=== PATIENT | female | born 1995 | race American Indian/Alaskan Native ===

== ENCOUNTER 2021-07-13 13:05 | Emergency (ER) | payer MEDICAID ==
--- NOTE | 2021-07-13 13:54 | Emergency Department Report ---
ED Female HPI - General Chief complaint: Urogenital-Female Stated complaint: FLU/COVID SYMPTOMS Time Seen by Provider: 07/13/21 13:50 Source: patient Mode of arrival: Ambulatory Limitations: No Limitations - History of Present Illness Initial comments: 26-year-old female who denies any significant past medical history presents to the ER today with complaints of abnormal vaginal bleeding. Patient states that she started vaginal spotting about 4 days ago. She states that she had no bleeding on Friday, then Friday the bleeding started again but heavier than normal. She states on average she has had to change 2-3 pads per day, but the pads were not soaked with blood. She states that the bleeding is mainly when she gets up to use the bathroom. She states that her last menstrual cycle was the week before . She is now currently on any control. She reports associated chills and headaches, and she also vomited twice since yesterday but she denies any other symptoms. MD Complaint: vaginal bleeding -: days(s) (2) - Related Data Previous Rx's Medication Instructions Recorded Last Taken Type Ketorolac [Toradol] 10 mg PO Q6H PRN #20 07/13/21 Unknown Rx Ondansetron [Zofran Odt] 4 mg PO Q8HR #15 tab.rapdis 07/13/21 Unknown Rx cephALEXin [Keflex] 500 mg PO Q8HR #21 cap 07/13/21 Unknown Rx Allergies Allergy/AdvReac Type Severity Reaction Status Date / Time No Known Allergies Allergy Unverified 07/13/21 13:43 ED Review of Systems ROS: Stated complaint: FLU/COVID SYMPTOMS Other details as noted in HPI Comment: All other systems reviewed and negative Eyes: denies: eye pain, eye discharge, vision change ENT: denies: ear pain, throat pain Respiratory: denies: cough, shortness of breath, wheezing Endocrine: no symptoms reported Gastrointestinal: nausea, vomiting. denies: abdominal pain, diarrhea, constipation, hematemesis, melena, hematochezia Genitourinary: abnormal menses. denies: urgency, dysuria, frequency, hematuria, discharge Musculoskeletal: denies: back pain, joint swelling, arthralgia Skin: denies: rash, lesions, change in color, change in hair/nails, pruritus Neurological: denies: headache, weakness, numbness, paresthesias, confusion, abnormal gait, vertigo ED Past Medical Hx - Past Medical History Previous Medical History?: No - Surgical History Past Surgical History?: No - Medications Home Medications: Home Medications Medication Instructions Recorded Confirmed Last Taken Type Ketorolac [Toradol] 10 mg PO Q6H PRN #20 07/13/21 Unknown Rx Ondansetron [Zofran Odt] 4 mg PO Q8HR #15 tab.rapdis 07/13/21 Unknown Rx cephALEXin [Keflex] 500 mg PO Q8HR #21 cap 07/13/21 Unknown Rx ED Physical Exam - General Limitations: No Limitations, Language Barrier General appearance: alert, in no apparent distress - Head Head exam: Present: atraumatic, normocephalic, normal inspection - Eye Eye exam: Present: normal appearance, PERRL, EOMI Pupils: Present: normal accommodation - Neck Neck exam: Present: normal inspection, full ROM - Respiratory Respiratory exam: Present: normal lung sounds bilaterally. Absent: respiratory distress, wheezes, rales, rhonchi, stridor - Cardiovascular Cardiovascular Exam: Present: regular rate, normal rhythm, normal heart sounds - Neurological Exam Neurological exam: Present: alert, oriented X3 - Psychiatric Psychiatric exam: Present: normal affect, normal mood - Skin Skin exam: Present: intact ED Course Vital Signs 07/13/21 07/13/21 13:42 16:26 Temperature 98.7 F 98.2 F Pulse Rate 125 H 90 Respiratory 18 16 Rate Blood Pressure 107/77 Blood Pressure 112/62 [Right] O2 Sat by Pulse 98 99 Oximetry ED Medical Decision Making - Lab Data Result diagrams: 07/13/21 15:37 - Medical Decision Making All labs reviewed --CBC and CMP unremarkable. hCG is negative. Urinalysis is concerning for UTI and reflex urine culture is ordered by lab and pending. Patient currently resting comfortably in recliner. She is not toxic or in any acute distress. She is not ill-appearing. She is neurologically intact with a normal gait. She has no complaints of abdominal pain or pelvic pain or back pain. She has a soft nontender abdomen on exam. She appears well-hydrated. Repeat vital signs shows improvement of her heart rate, remaining vital signs are stable. Discussed lab results with patient. She will be treated with antibiotic for UTI. She will need to follow-up with her [facility] for further evaluation if her abnormal bleeding continues. At this time there is no ind ication for emergent consult, or for the emergent testing or treatment. Patient expressed understanding for instructions and agree with plan. Patient stable at time of discharge. Critical care attestation.: If time is entered above; I have spent that time in minutes in the direct care of this critically ill patient, excluding procedure time. ED Disposition Clinical Impression: Abnormal vaginal bleeding, UTI (urinary tract infection) Disposition: HOME / SELF CARE / HOMELESS Is pt being admited?: No Does the pt Need Aspirin: No Condition: Stable Instructions: Urinary Tract Infection, Adult, [id number], Abnormal Uterine Bleeding, [id number] Additional Instructions: Take the antibiotics as prescribed for your UTI. Take the zofran to help with nausea and take the toradol to help with any pain. Follow up with OBGYN listed on your discharge instructions for further evaluation of your abnormal bleeding. Drink lots of fluids. Return to the ER if your symptoms worsens or changes in any way. Prescriptions: cephALEXin [Keflex] 500 mg PO Q8HR #21 cap Ketorolac [Toradol] 10 mg PO Q6H PRN #20 PRN Reason: Pain Ondansetron [Zofran Odt] 4 mg PO Q8HR #15 tab.rapdis Referrals: PRIMARY CARE [Primary Care Provider] - 3-5 Days [facility] [Provider Group] - 3-5 Days [facility] [Provider Group] - 3-5 Days Forms: Work/School Release Form(ED) Time of Disposition: 16:10
[2021-07-13 15:02] LABS: Bilirubin,Urine NEG (Negative); Blood,Urine LG (Negative); Color,Urine Yellow (Yellow); Urobilinogen,Urine < 2.0 mg/dL (<2.0)
[2021-07-13 15:04] LABS: RBC,Urine > 182.0 /HPF (0.0-6.0); WBC,Urine > 182.0 /HPF (0.0-6.0)
[2021-07-13 15:57] LABS: Basophils % (Auto) 0.8 % (0.0-1.8); Eosinophils % (Auto) 0.2 % (0.0-4.3); Hematocrit 41.5 % (30.3-42.9); Hemoglobin 13.2 gm/dl (10.1-14.3); Lymphocytes # (Auto) 1.3 K/mm3 (1.2-5.4); Lymphocytes % (Auto) 32.9 % (13.4-35.0); Mean Corpuscular HGB Conc 32 % (30-34); Mean Corpuscular Volume 95 fl (79-97); Monocytes # (Auto) 0.4 K/mm3 (0.0-0.8); Monocytes % (Auto) 9.7 % (0.0-7.3); Platelet Count 234 K/mm3 (140-440); Red Blood Count 4.38 M/mm3 (3.65-5.03); Red Cell Distribution Width 12.7 % (13.2-15.2)
[2021-07-13 16:35] VITALS: BP 112/62
== END 2021-07-13 16:35 | disposition home or self-care (01) ==
LOC: ED 13:05
DX: N93.9 Abnormal uterine and vaginal bleeding, unspecified (principal); N39.0 Urinary tract infection, site not specified
CPT/HCPCS: 36415; 81001; 84703; 85025; 99283